=== PATIENT | female | born 1945 | race Caucasian/White ===

== ENCOUNTER → 2023-11-15 10:01 | Outpatient (REF) | payer MEDICARE, SELFPAY | LOC: WDC 10:01 | PROVIDERS: ATTENDING PHYSICIAN Nurse Practitioner Primary Care | DX: N64.4 Mastodynia (principal); N64.89 Other specified disorders of breast | CPT/HCPCS: 76642; 77062; 77066 ==

== ENCOUNTER → 2023-12-27 11:30 | Outpatient (REF) | payer MEDICARE, SELFPAY | LOC: PAVMRI 11:30 | PROVIDERS: ATTENDING PHYSICIAN Nurse Practitioner Primary Care | DX: R07.89 Other chest pain (principal); N64.4 Mastodynia | CPT/HCPCS: 71552; A9575 ==

== ENCOUNTER → 2024-05-13 13:47 | Outpatient (REF) | payer MEDICARE, SELFPAY | LOC: WDC 13:47 | PROVIDERS: ATTENDING PHYSICIAN Internal Medicine | DX: R92.8 Other abnormal and inconclusive findings on diagnostic imaging of breast (principal) | CPT/HCPCS: 76642 ==

== ENCOUNTER 2024-05-22 06:15 | Day surgery (SDC) | payer MEDICARE, SELFPAY | END 2024-05-22 10:40 | disposition home or self-care (01) | LOC: GI 06:15 | PROVIDERS: ATTENDING PHYSICIAN Specialist | DX: K44.9 Diaphragmatic hernia without obstruction or gangrene (principal); R13.10 Dysphagia, unspecified; Z86.0100 Personal history of colon polyps, unspecified; Z53.8 Procedure and treatment not carried out for other reasons | CPT/HCPCS: 43235; 45378; G0378 ==

== ENCOUNTER 2024-05-22 10:15 | Emergency (ER) | payer MEDICARE, SELFPAY ==
[2024-05-22 10:17] VITALS: BP 128/74
--- NOTE | 2024-05-22 10:53 | ED.GENMED ---
History of Present Illness
General
Chief Complaint: Heart Rate Problem
Source: patient
Time Seen by Provider: 05/22/24 10:44
History of Present Illness
History of Present Illness:
78-year-old female presents to the emergency room from outpatient GI center where she was scheduled to have a endoscopy and colonoscopy. Patient prepped throughout the night and has been having significant diarrhea of course. She did take the dose
of metoprolol today but took no other medications. She denies any chest pain, shortness of breath etc. While at the endoscopy center they noted her heart rate was fast and she was in atrial fibrillation. Patient has permanent A-fib and is on a
rate control strategy. She is on Eliquis but has not taken it for the past 48 hours. Patient's main complaint is that she is extremely thirsty.
Past History
Past History
ED Past Medical History: Arrthythmia (Atrial fib) and Hypothyroidism; Negative HTN, Hypercholesterolemia or NIDDM
ED Past Surgical History: Gynecological (Partial hysterectomy) and Other (Eye surgery)
Social History
Tobacco: Former smoker
Alcohol: Occasional (Red Wine)
Personal: ( in a half-way)
Phy Exam
Physical Exam
Physical Exam:
General: Awake, Alert, Oriented X3. No acute distress.
Vitals: Tachycardic
Head: Atraumatic
Eyes: Pupils equal, EOMI
Throat: Airway intact, no exudates, dry mucosa
Neck: Trachea midline
Lungs: Clear and equal b/l
Heart: Regular rate, no murmurs
Abd: Soft, Nontender, No pulsatile mass
Neuro: Nonfocal
Skin: Warm, dry, no rash
Extremities: pulses equal b/l, no edema
Course
Orders/Labs/Results
Orders:
Orders
05/22/24 10:22
Electrocardiogram (*1) Urgent
Reason for Study: Chest Pain
EKG- Treatment ONCE
05/22/24 10:51
0.9% Sodium Chloride 500 ml [Nss] 500 ml IV BOLUS
05/22/24 11:06
Basic Metabolic Panel Urgent
Complete Blood Count/No Diff Urgent
05/22/24 12:53
Metoprolol [Lopressor] 25 mg PO NOW STA
Abnormal Lab Results
05/22/24
11:06
Sodium 146 H mmol/L
(135-145)
Chloride 109 H mmol/L
(98-107)
Carbon Dioxide 20 L mmol/L
(22-30)
BUN 18 H mg/dl
(7-17)
05/22/24 11:06
05/22/24 11:06
Vital Signs
Initial and Last Documented VS:
Initial Vital Signs
Temp Pulse Resp BP Pulse Ox
99.1 F 121 20 128/74 95
05/22/24 10:17 05/22/24 10:17 05/22/24 10:17 05/22/24 10:17 05/22/24 10:17
Last Documented Vital Signs
Temp Pulse Resp BP Pulse Ox
99.1 F 99 20 117/69 95
05/22/24 10:17 05/22/24 13:45 05/22/24 13:45 05/22/24 13:00 05/22/24 13:45
MDM/Problems Addressed
Differential Diagnosis Includes:
Uncontrolled A-fib, dehydration, anemia
MDM/Problems Addressed:
Patient presents with A-fib with a rapid ventricular response. She just prep for colonoscopy and was at the endoscopy center being prepped for the procedure when they sent her to the emergency room for rapid heart rate. Patient appears well and is
essentially asymptomatic. Specifically she denies any chest pain, shortness of breath. Clinically she looks a bit dry. She was given a 500 cc bolus of normal saline. Labs are consistent with dehydration. Her sodium is mildly high at 146,
chloride mildly high at 109 she has a mildly low bicarb and elevated BUN at 18. Patient feels better after IV fluids. She was given an additional 25 mg of metoprolol as well. She is able to ambulate without difficulty. Patient stable for
discharge home. She was instructed to resume her normal medications.
*EKG
Interpretation: abnormal
Heart Rate: 121
Rate: tachycardiac
Rhythm: a-fib and PVC's
[place]so: normal axis
Interval: normal interval
QRS Pattern: normal QRS
Ischemia: non-specific ST changes
*General Merchandise Manager Interpretation
Rate: tachycardiac
Interpretation: abnormal
Heart Rate: 121
Rhythm: a-fib
*Critical Care Note
Total Time (30-74mins, 75-104mins- exclusive of procedures): Not Applicable
ED Attending Note
-
Portions of this chart may have been created with voice recognition software.� Occasional wrong word or��sound alike� substitutions may have occurred due to the inherent limitations of voice recognition software.
Discharge Plan
Departure
Patient Disposition: Home (Routine Discharge)
Date of Disposition: 05/22/24
Time of Disposition: 13:47
Patient with high blood pressure during this ER visit?: No
Condition: Good
Discharge Problem:
Atrial fibrillation with rapid ventricular response, Dehydration
Instructions: Atrial Fibrillation (DC)
Prescriptions:
No Action
levothyroxine 100 MCG tablet
100 mcg PO DAILY
metoprolol tartrate 50 MG tablet
25 mg PO BID
Patient Comments:
with meals
apixaban [Eliquis] 5 MG tablet
5 mg PO BID
vitamin E (dl, acetate) 1,000 UNIT capsule
1,000 unit PO DAILY
cholecalciferol (vitamin D3) [Vitamin D3] 2,000 UNIT capsule
2,000 unit PO DAILY
Referrals:
Fer Cantrell DO [Family Provider] -
Activity Restrictions/Additional Instructions:
You are sent to the emergency room because you had a rapid heart rate in atrial fibrillation. I suspect this happened because you went through the bowel prep and became somewhat dehydrated. This physiologic stress may have caused you to have
uncontrolled A-fib. With some IV fluids and an extra dose of metoprolol your heart rate is much improved at this point. I think it is safe for you to be discharged home. Resume your medications and discuss next steps for cancer screening with
your farrowing worker/primary care provider.
Interventions
Interventions:
*Risk Screen - Suicide Last Done: 05/22/24 10:17
*General Assessment Last Done: 05/22/24 10:17
*Neglect/Abuse Screening Last Done: 05/22/24 10:17
*ED- Fall Risk Assessment Last Done: 05/22/24 11:13
*ED COVID-19 Vaccine History Last Done: 05/22/24 11:13
*Nursing Disposition Last Done: 05/22/24 14:19
ED- Cardiac Assessment Last Done: 05/22/24 11:13
ED- Pulmonary Assessment Last Done: 05/22/24 11:13
Discharge Date and Time
Discharge Date/Time: 05/22/24 14:19
Print Language: ARGENTINE
[2024-05-22 11:02] VITALS: BP 113/67
[2024-05-22] MEDS: NSS 500 IV (11:09)
[2024-05-22 11:25] LABS: Hematocrit 43.1 % (37.0-47.0); Hemoglobin 14.5 g/dL (12.0-16.0); Mean Corp Hgb Conc. 33.6 g/dL (33.0-37.0); Mean Corpuscular Hgb 29.9 pg (27.0-31.0); Mean Corpuscular Volume 88.9 fL (81.0-99.0); Mean Platelet Volume 9.4 fL (7.4-10.4); Platelet Count 285 10^3/uL (130-400); Red Blood Cell Count 4.85 10^6/uL (4.20-5.40)
[2024-05-22 11:44] LABS: Blood Urea Nitrogen 18 mg/dl (7-17); Calcium 9.8 mg/dl (8.4-10.2); Carbon Dioxide 20 mmol/L (22-30); Chloride 109 mmol/L (98-107); Glucose 87 mg/dl (70-99); Potassium 4.5 mmol/L (3.5-5.1); Sodium 146 mmol/L (135-145); eGFR > 60.00
[2024-05-22 12:00] VITALS: BP 118/91
[2024-05-22] MEDS: LOPRESSOR 25 MG PO (12:57)
[2024-05-22 13:00] VITALS: BP 117/69
== END 2024-05-22 14:19 | disposition home or self-care (01) ==
LOC: EMR 10:15
PROVIDERS: EMERGENCY PHYSICIAN Emergency Medicine; FAMILY PHYSICIAN Internal Medicine
DX: I48.91 Unspecified atrial fibrillation (principal); E86.0 Dehydration; I49.3 Ventricular premature depolarization; E03.9 Hypothyroidism, unspecified; Z79.01 Long term (current) use of anticoagulants; Z87.891 Personal history of nicotine dependence
CPT/HCPCS: 96360; 99284; 80048; 85027; 93005

== ENCOUNTER → 2024-06-03 13:13 | Outpatient (REF) | payer MEDICARE, SELFPAY | LOC: RAD 13:13 | PROVIDERS: ATTENDING PHYSICIAN Student in an Organized Health Care Education/Training Program; FAMILY PHYSICIAN Internal Medicine | DX: R06.02 Shortness of breath (principal) | CPT/HCPCS: 71046 ==

== ENCOUNTER → 2024-06-06 07:56 | Outpatient (REF) | payer MEDICARE, SELFPAY | LOC: HWRCS 07:56 | PROVIDERS: ATTENDING PHYSICIAN Student in an Organized Health Care Education/Training Program; FAMILY PHYSICIAN Nurse Practitioner Primary Care | DX: R06.02 Shortness of breath (principal) | CPT/HCPCS: 78452; 93017; A9500; J2785 ==

== ENCOUNTER → 2024-06-11 13:45 | Outpatient (REF) | payer MEDICARE, SELFPAY | LOC: HWRCS 13:45 | PROVIDERS: ATTENDING PHYSICIAN Student in an Organized Health Care Education/Training Program; FAMILY PHYSICIAN Nurse Practitioner Primary Care | DX: I48.21 Permanent atrial fibrillation (principal) | CPT/HCPCS: 93306 ==

== ENCOUNTER → 2024-10-07 09:48 | Outpatient (REF) | payer MEDICARE, SELFPAY | LOC: RAD 09:48 | PROVIDERS: ATTENDING PHYSICIAN Specialist; FAMILY PHYSICIAN Internal Medicine | DX: K21.9 Gastro-esophageal reflux disease without esophagitis (principal) | CPT/HCPCS: 74246 ==

== ENCOUNTER 2024-11-11 06:20 | Day surgery (SDC) | payer MEDICARE, SELFPAY | END 2024-11-11 14:50 | disposition home or self-care (01) | LOC: GI 06:20 | PROVIDERS: ATTENDING PHYSICIAN Specialist; FAMILY PHYSICIAN Internal Medicine | DX: Z12.11 Encounter for screening for malignant neoplasm of colon (principal); K57.30 Diverticulosis of large intestine without perforation or abscess without bleeding; K44.9 Diaphragmatic hernia without obstruction or gangrene; R12 Heartburn; K22.89 Other specified disease of esophagus; K31.89 Other diseases of stomach and duodenum; D12.0 Benign neoplasm of cecum; D12.2 Benign neoplasm of ascending colon; D12.3 Benign neoplasm of transverse colon; K63.5 Polyp of colon; K22.70 Barrett's esophagus without dysplasia; Z86.0101 Personal history of adenomatous and serrated colon polyps | CPT/HCPCS: 45385; 45380; 43239; 88305; 88342 ==

== ENCOUNTER → 2024-11-26 13:54 | Outpatient (REF) | payer MEDICARE, SELFPAY | LOC: WDC 13:54 | PROVIDERS: ATTENDING PHYSICIAN Internal Medicine | DX: Z12.31 Encounter for screening mammogram for malignant neoplasm of breast (principal); R92.8 Other abnormal and inconclusive findings on diagnostic imaging of breast | CPT/HCPCS: 76642; 77063; 77067 ==